=== PATIENT | male | born 1995 | race Caucasian/White ===

== ENCOUNTER → 2021-01-24 07:56 | Outpatient (CLI) | payer BC, SELFPAY ==
[2021-01-15 10:00] VITALS: BMI 21.2
--- NOTE | 2021-01-24 08:05 | ECHOD_ITS ---
Reason For Study: Cardiac MURMUR, BAV Procedure This was a 2D Doppler, Color Flow transthoracic echocardiogram. The study was technically difficult. The study was technically limited. Due to body habitus. Left Ventricle Normal LV size. Left ventricular systolic function is normal. The estimated ejection fraction is 55 %. No regional wall motion abnormalities noted. Right Ventricle Normal RV size. Normal systolic function. Atria Normal left atrium. Normal right atrium. Mitral Valve Normal mitral valve. Mild (1+) eccentric mitral valve insufficiency. Tricuspid Valve Normal tricuspid valve. Mild tricuspid valve insufficiency. Aortic Valve Bicuspid AV with raphe between R and L cusps. Mild (1+) aortic valve insufficiency. Pulmonic Valve Normal pulmonic valve. Great Vessels Normal aortic root. The pulmonary artery is normal size. Normal inferior vena cava. Pericardium/Pleural No pericardial effusion. MMode/2D Measurements & Calculations LVIDd: 5.0 cm IVSd: 0.93 cm Ao root diam: 2.7 cm LVIDs: 3.3 cm LVPWd: 0.96 cm FS: 34.1 % LAV(MOD-sp4): 45.5 ml LA A4 area: 17.2 cm2 LA dimension(2D): 2.6 cm RA A4 area: 10.5 cm2 Time Measurements MV dec time: 0.15 sec Doppler Measurements & Calculations MV E max colin: 94.2 cm/sec Lat Peak E' Colin: 11.8 cm/sec Med Peak E' Colin: 13.9 cm/sec MV A max colin: 71.6 cm/sec E/E' lat: 8.0 E/E' med: 6.8 MV E/A: 1.3 Ao V2 max: 110.2 cm/sec LV V1 max: 73.8 cm/sec PA V2 max: 113.4 cm/sec Ao max P.9 mmHg LV V1 max P.2 mmHg TR max colin: 228.9 cm/sec TR max P.0 mmHg ECHO/Echo Complete Interpretation Summary Normal LV size. Left ventricular systolic function is normal. The estimated ejection fraction is 55 %. Bicuspid AV with raphe between R and L cusps Mild (1+) aortic valve insufficiency. Ordering Physician: Jian Carrasco Referring Physician: [email or web address] PCP Performed By: Kelly Hoffman, VENITA, RVT
== END ==
PROVIDERS: Referring Provider Internal Medicine Cardiovascular Disease; Visit Provider Internal Medicine Cardiovascular Disease
DX: R01.1 Cardiac murmur, unspecified (principal)
CPT/HCPCS: 93306